=== PATIENT | male | born 1945 | race Caucasian/White ===

== ENCOUNTER 2023-04-16 09:36 | Outpatient (CLI) | payer OTHER, SELFPAY | END 2023-04-16 09:37 | disposition home or self-care (01) | PROVIDERS: Visit Provider Internal Medicine | DX: C49.4 Malignant neoplasm of connective and soft tissue of abdomen (principal) | CPT/HCPCS: 73723; A9575 ==

== ENCOUNTER 2023-04-16 09:46 | Outpatient (RCR) | payer OTHER, SELFPAY | END 2023-10-13 23:59 | disposition home or self-care (01) | LOC: CCIC 09:46 | PROVIDERS: Visit Provider Internal Medicine | DX: C49.4 Malignant neoplasm of connective and soft tissue of abdomen (principal) | CPT/HCPCS: 99211; G0463 ==